=== PATIENT | male | born 1980 | race Caucasian/White ===

== ENCOUNTER 2017-11-03 15:08 | Emergency (ER) | payer OTHER ==
[2017-11-03 15:57] VITALS: BP 140/82
--- NOTE | 2017-11-03 16:28 | UC ---
Complaint Male HPI - HPI Summary HPI Summary: 36 male with pain and swelling right hemiscrotum x 2 days had a vascetomy years ago and since then has had chronic mild pain and tenderness here Apr 2017 had marked pain and swelling in the same area(much worse than currently ) had and ultrasound that showed ?cysts) no dysuria no urgency no penile d/c - History of Current Complaint Chief Complaint: UCGeneralIllness Stated Complaint: PERSONAL Time Seen by Provider: 11/03/17 15:50 Hx Obtained From: Patient Onset/Duration: Gradual Onset, Lasting Days Timing: Constant Severity Initially: Moderate Severity Currently: Mild Pain Intensity: 3 Pain Scale Used: 0-10 Numeric Location: Scrotum Character: Constant Pressure Alleviating Factor(s): Other - elevating scrotum Associated Signs And Symptoms: Positive: Negative - Allergies/Home Medications Allergies/Adverse Reactions: Allergies Allergy/AdvReac Type Severity Reaction Status Date / Time No Known Allergies Allergy Verified 11/03/17 15:57 Home Medications: Home Medications Lisinopril TAB* [Prinivil TAB*] 5 mg PO DAILY 11/03/17 [History Confirmed ] PMH/Surg Hx/FS Hx/Imm Hx Previously Healthy: Yes Cardiovascular History: Hypertension - Surgical History Surgical History: Yes Surgery Procedure, Year, and Place: Vasectomy 2015 - Family History Known Family History: Positive: Hypertension - Social History Alcohol Use: Occasionally Substance Use Type: None Smoking Status (MU): Never Smoked Tobacco Review of Systems Constitutional: Negative Skin: Negative Eyes: Negative ENT: Negative Respiratory: Negative Cardiovascular: Negative Gastrointestinal: Negative Genitourinary: Negative Motor: Negative Neurovascular: Negative Musculoskeletal: Negative Neurological: Negative Psychological: Negative Is Patient Immunocompromised?: No All Other Systems Reviewed And Are Negative: Yes Physical Exam Triage Information Reviewed: Yes Appearance: Well-Appearing, No Pain Distress, Well-Nourished Vital Signs: Initial Vital Signs Temp 99.3 F 11/03/17 15:50 Pulse 75 11/03/17 15:50 Resp 16 11/03/17 15:50 BP 140/82 11/03/17 15:50 Pulse Ox 99 11/03/17 15:50 Vital Signs Reviewed: Yes ENT: Positive: Hearing grossly normal. Negative: Nasal congestion, Nasal drainage, TMs normal, Trismus, Muffled voice, Hoarse voice Neck: Positive: Supple Respiratory: Positive: Lungs clear, Normal breath sounds, No respiratory distress Cardiovascular: Positive: RRR, No Murmur Abdomen Description: Positive: Nontender, No Organomegaly, Other: - testicles both descended with normal orientation and lie, penic circumcised and no lesion right spermatic cord slight tender and swollen/no overlying redness. Negative: CVA Tenderness (R), CVA Tenderness (L) Bowel Sounds: Positive: Present Musculoskeletal: Positive: ROM Intact, No Edema Neurological: Positive: Alert Psychological Exam: Normal Psychological: Positive: Decreased Age Appropriate Behavior Complaint Male Course/Dx - Differential Dx/Diagnosis Provider Diagnoses: right spermatic cord swelling and tenderness of uncertain cause Discharge - Discharge Plan Condition: Stable Disposition: HOME Prescriptions: DOXYcycline CAP(*) [DOXYcycline 100MG CAP(*)] 100 mg PO BID #14 cap Referrals: Khalif Davenport DO [Primary Care Provider] - Additional Instructions: I am unsure of the cause of the pain and swelling you are having I find nothing to suggest epididymitis your testicular exam was normal I am not sure if this could be related to post vasectomy scarring/inflammation If symptoms worsen go to the ER see your urologist first available appt mary carmen
== END 2017-11-03 16:25 | disposition home or self-care (01) ==
LOC: UCCORT 15:08
DX: N49.1 Inflammatory disorders of spermatic cord, tunica vaginalis and vas deferens (principal); Z98.52 Vasectomy status; I10 Essential (primary) hypertension
CPT/HCPCS: 81003; 99202; G0463

== ENCOUNTER 2017-11-08 11:13 | Emergency (ER) | payer OTHER ==
[2017-11-08 12:02] VITALS: BP 116/85
--- NOTE | 2017-11-08 12:43 | UC ---
FLU HPI - HPI Summary HPI Summary: 36 male presents to ED with complaints of flu-like symptoms that began Tuesday, 2 days ago 11/06/17. States he has had a cough, congestion, slight sore throat, fever of 101.5F and body aches. Has been taking coricidin with some relief. Took tylenol this morning around 10am. No other complaints. No vomiting. No fever today. Co-worker did have positive flu. PMHx significant for HTN. No trouble breathing or chest pain - History of Current Complaint Chief Complaint: UCRespiratory Stated Complaint: FLU SYMPTOMS Time Seen by Provider: 11/08/17 12:06 Hx Obtained From: Patient Onset/Duration: Sudden Onset, Lasting Days, Still Present Severity Currently: Moderate Severity Initially: Moderate Pain Intensity: 8 Pain Scale Used: 0-10 Numeric Associated Signs & Symptoms: Positive: Fever, Myalgia, Cough, Sore Throat, Nasal Congestion, Headache Related Hx: Possible Flu/Infectious Exposure - Allergy/Home Medications Allergies/Adverse Reactions: Allergies Allergy/AdvReac Type Severity Reaction Status Date / Time No Known Allergies Allergy Verified 11/08/17 11:58 Home Medications: Home Medications Acetaminophen [Pain Reliever] 1,000 mg PO 11/08/17 [History] Chlorpheniramine/Dextromethorp [Coricidin Hbp Cough & Col] 1 tab PO 11/08/17 [ History] amLODIPine TAB* [Norvasc 5 mg TAB*] 5 mg PO DAILY 11/08/17 [History Confirmed ] PMH/Surg Hx/FS Hx/Imm Hx Cardiovascular History: Hypertension - Surgical History Surgical History: Yes Surgery Procedure, Year, and Place: Vasectomy 2016 - Family History Known Family History: Positive: Hypertension - Social History Alcohol Use: Occasionally Substance Use Type: None Smoking Status (MU): Never Smoked Tobacco Review of Systems Constitutional: Fever, Chills, Fatigue ENT: Sore Throat, Ear Ache, Nasal Discharge Respiratory: Cough Cardiovascular: Negative Musculoskeletal: Myalgia Neurological: Headache All Other Systems Reviewed And Are Negative: Yes Physical Exam Triage Information Reviewed: Yes Appearance: No Pain Distress, Well-Nourished, Ill-Appearing Vital Signs: Initial Vital Signs Temp 97.7 F 11/08/17 11:54 Pulse 88 11/08/17 11:54 Resp 18 11/08/17 11:54 BP 116/85 11/08/17 11:54 Pulse Ox 99 11/08/17 11:54 Vital Signs Reviewed: Yes Eyes: Positive: Conjunctiva Clear ENT: Positive: Hearing grossly normal, Pharynx normal, Nasal congestion, TMs normal, Uvula midline. Negative: Pharyngeal erythema, Tonsillar swelling, Tonsillar exudate Neck: Positive: Supple Respiratory: Positive: Chest non-tender, Lungs clear, Normal breath sounds, No respiratory distress, No accessory muscle use. Negative: Respiratory distress, Wheezing Cardiovascular: Positive: RRR, No Murmur, Pulses Normal Abdominal Exam: Normal Abdomen Description: Positive: Nontender, Soft Bowel Sounds: Positive: Present Musculoskeletal: Positive: Strength Intact Neurological: Positive: Alert Skin Exam: Normal Flu Course/Dx - Course Course Of Treatment: influenza obtained and positive. will give tamiflu as patients symptoms began within 48 hours. educated on hygiene precautions and family member prophylactic treatment. fluids, rest, ibuprofen. any new or worsening symptoms please seek medical attention. follow up with pcp. - Differential Dx/Diagnosis Differential Diagnosis/HQI/PQRI: Influenza Provider Diagnoses: influenza B Discharge - Discharge Plan Condition: Good Disposition: HOME Prescriptions: Oseltamivir SUSP 75 MG dose* [Tamiflu SUSP 75 MG dose*] 75 mg PO BID #10 oral.syrin Patient Education Materials: Influenza (ED) Forms: *Work Release Referrals: Khalif Davenport DO [Primary Care Provider] - Additional Instructions: Take prescribed medication to help with symptoms. Increase fluids and get plenty of rest. Wash hands frequently and cover mouth when coughing. Flu is very contagious. Continue tylenol/ibuprofen as needed for fever/body aches. Any new or worsening symptoms please seek medical attention promptly. Follow up with PCP.
== END 2017-11-08 12:48 | disposition home or self-care (01) ==
LOC: UCCORT 11:13
DX: J10.1 Influenza due to other identified influenza virus with other respiratory manifestations (principal); I10 Essential (primary) hypertension
CPT/HCPCS: 87502; 99212; G0463